=== PATIENT | female | born 1975 | race African-American/Black ===

== ENCOUNTER 2020-07-15 08:04 | Day surgery (SDC) | payer OTHER ==
--- NOTE | 2020-07-15 08:14 | RAD REPORT ---
EXAM DESCRIPTION: Antionette Coombs And [place] (2 Views)07/15/2020 8:03 am CLINICAL HISTORY: Preop for breast reduction COMPARISON: None FINDINGS: The lungs appear clear of acute infiltrate. The heart is normal size IMPRESSION: No acute abnormalities displayed
[2020-07-15 08:20] LABS: Absolute Lymphocytes (CBC) 2.2 K/uL (0.7-4.9); Basophils % 0.8 % (0-1.3); Hematocrit 39.3 % (36.0-45.0); Lymphocytes % 42.9 % (15.3-44.8); MPV 7.2 fL (7.6-11.3); RBC Red Blood Cell Count 4.43 M/uL (3.86-4.86)
[2020-07-15 08:21] LABS: Specific Gravity 1.025 (1.005-1.030); Urine Appearance CLEAR (Clear); Urine Bilirubin NEGATIVE (Negataive); Urine Blood NEGATIVE (Negative); Urine Color YELLOW (Yellow); Urine Glucose NEGATIVE (Negative); Urine Protein NEGATIVE (Negative); Urine Specific Gravity 1.025 (1.005-1.030)
[2020-07-15 08:28] LABS: Urine Microscopic Reflex NO UMIC
[2020-07-15] MEDS ORDERED: Ringers Lactate 1,000 ML IV ONE ×4 (08:43→16:28)
[2020-07-15] MEDS ORDERED: CEFAZOLIN/SWI 1gm 1 GM/10 ML SYR ONE (08:43)
[2020-07-15] MEDS ORDERED: SCOPOLAMINE HYDROBROMIDE PATCH TD ONE (08:43)
[2020-07-15] MEDS ORDERED: propofoL 200 MG/20 ML VIAL IV ONE (08:59)
[2020-07-15] MEDS ORDERED: MIDAZOLAM HCL 2 MG/2 ML INJ ONE (08:59)
[2020-07-15] MEDS ORDERED: dexAMETHasone 10 MG/ML VIAL ONE ×2 (08:59→13:15)
[2020-07-15] MEDS ORDERED: ONDANSETRON 4 MG/2 ML VIAL ONE ×3 (09:00→18:35)
[2020-07-15] MEDS ORDERED: LIDOCAINE 1% MPF 5 ML VIAL ONE (09:00)
[2020-07-15] MEDS ORDERED: LANO/MINERAL OIL/PETRO 3.5 GM ONE (09:00)
[2020-07-15] MEDS ORDERED: VECURONIUM 10 MG/VIAL IV ONE ×2 (09:00→11:16)
[2020-07-15] MEDS ORDERED: FENTANYL CITR 250 MCG/5 ML ONE (09:00)
[2020-07-15] MEDS ORDERED: NS 0.9% VIAL 0 ML ONE (09:00)
[2020-07-15] MEDS ORDERED: NS 0.9% VIAL 10 ML ONE ×2 (11:11→12:48)
[2020-07-15] MEDS ORDERED: Phenylephrine HCl 10 MG/ML 1 ML VIAL ONE (11:11)
[2020-07-15] MEDS ORDERED: FENTANYL CITR 100 MCG/2 ML ONE ×2 (12:04→14:22)
[2020-07-15] MEDS ORDERED: NA CHLORIDE 0.9% 1,000 ML ONE ×3 (12:31→14:56)
[2020-07-15] MEDS ORDERED: EPINEPHRINE/PF 1 MG/ML AMP ONE ×3 (12:32→14:56)
[2020-07-15] MEDS ORDERED: NS 0.9% VIAL 60 ML ONE (12:32)
[2020-07-15] MEDS ORDERED: GENTAMICIN SULF 80 MG/2ML INJ ONE (12:32)
[2020-07-15] MEDS ORDERED: CEFAZOLIN SODIUM 1 GM/VIAL ONE (12:32)
[2020-07-15] MEDS ORDERED: LIDOCAINE 1% W/EPI 1:100,000 MDV 20 ML VIAL ONE (12:32)
[2020-07-15] MEDS ORDERED: BACITRACIN 50000 UNIT VIAL ONE (12:32)
[2020-07-15] MEDS ORDERED: EPHEDRINE SULF 50 MG/ML VIAL ONE (12:48)
[2020-07-15] MEDS ORDERED: KETOROLAC 30 MG/ML INJ ONE (13:15)
[2020-07-15] MEDS ORDERED: KETAMINE HCL 500 MG/5 ML VIAL ONE (14:22)
[2020-07-15] MEDS ORDERED: GLYCOPYRROLATE 0.2 MG/ML SYR ONE (14:55)
[2020-07-15] MEDS ORDERED: NEOSTIGMINE 1 MG/ML -5 ML ONE (14:55)
[2020-07-15] MEDS ORDERED: Mastisol Adhesive Liq ONE ×2 (15:36→15:40)
[2020-07-15] MEDS: HYDROMORPHONE HCL 1 MG/ML INJ ONE ×4 (15:57→16:15)
[2020-07-15 16:25] VITALS: O2SAT 100
[2020-07-15] MEDS ORDERED: MEPERIDINE HCL 25 MG/ML SYR ONE (17:11)
[2020-07-15 18:56] VITALS: BP 107/69; TEMP 97
--- NOTE | 2020-07-15 22:02 | OP ---
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 Procedure Performed: Breast lift and liposuction of the abdomen and flanks 3000 cc in and 2400 cc out. Anesthesia: General. Procedure In Detail: After satisfactory induction of general anesthesia, chest was prepped with DuraPrep and dry sterile drapes applied in the usual manner. A 5 cm template was used to outline the right and left areolas. Then the transverse and curvilinear incisions were made. Intervening skin was de- epithelialized with a dermabrader and EpiCut. Right side was approached first. The flap was elevated 1.5 cm thick toward the sternum, clavicle, and anterior axillary line and the inferior incision was made. The de-epithelized tissue was formed in the cone after excess lateral tissue excised. This was done with 2-0 PDS suture. Then straps were elevated at 12 o'clock, 1:30, and 3 o'clock position. The straps were then woven in and out of the pectoralis muscle back to base of the cone, back to pectoral muscle, back to base of cone, tied themselves with 2-0 PDS suture. This was done for 12 o'clock and 1:30 strap. The 3 o'clock strap was sewn over the sternum at 3 o'clock position with 2-0 Ethibond. Mirror image was done on left side and wounds were temporary stapled shut. Dog ears were marked out, tissue resected, and then the wound was irrigated with antibiotic solution and then closed with 3-0 Vicryl subcu and 3-0 PDS running subcuticular tied in the vertical meridian of the breast. The patient was sat up. Site for new nipple-areolar complex was marked out, tissue cored out with 5 cm template, and then nipples delivered and sewn with interrupted 4-0 PDS followed by 4-0 PDS running subcuticular. Then and all the instruments were brought in field and the patient preped with DuraPrep, dry sterile drapes applied in the usual manner. Incision was made superior to the anterior iliac spine bilaterally and supraumbilical and then a 2 mm cannula was used to infuse. The amount infused was upper abdomen 1000 and lower abdomen 1000 . Total amount removed was 2400. Total amount infused was 3000. The umbilical incision was closed with 4-0 PDS. Abdominal incisions were left open for drainage. Tincture of benzoin, Steri-Strips were applied over the breast wounds followed by Esmarch, fluffs, and [place]ako wrap. Abdominal binder was placed. The patient tolerated procedure well and returned to recovery. RADHA/NANCY Voice ID: [id number] Report ID: [id number]
== END 2020-07-15 18:50 | disposition home or self-care (01) ==
LOC: OR 08:04
PROVIDERS: ATTEND Specialist
PROC: 0HSV0ZZ Reposition Bilateral Breast, Open Approach (ICD-10-PCS; principal; 2020-07-15 09:00)
PROC: 0J083ZZ Alteration of Abdomen Subcutaneous Tissue and Fascia, Percutaneous Approach (ICD-10-PCS; 2020-07-15 09:00)
DX: N64.81 Ptosis of breast (principal); E65 Localized adiposity
CPT/HCPCS: 93005; 85025; 36415; 81025; 88305; 81003; 71046; 19316; 15877; J2704; J0171 ×3; J2370; J1580; J2250; J3010 ×3; J1100 ×2; J2175; J1170 ×2; J2710; J0690 ×2; J7120 ×4; J7030 ×3; J2405 ×3